=== PATIENT | male | born 1985 | race Two or more races ===

== ENCOUNTER 2020-03-04 17:17 | Emergency (ER) | payer BC ==
[~2020-03-04] VITALS: Ht 190.5 cm; Wt 108.4 kg
[2020-03-04] MEDS ORDERED: LEVOTHYROXINE100 MC1 PO (17:46)
[2020-03-04] MEDS ORDERED: RAMIPRIL5 MG PO (17:46)
[2020-03-04] MEDS ORDERED: FAMOTIDINE 20 MG/2 ML VIAL IV NR (18:00)
--- NOTE | 2020-03-04 18:34 | Emergency Department Note ---
History of Present Illnes History of Present Illness Chief Complaint: Chest Pain History of Present Illness This is a 34 year old Other male . Historian: Patient Arrival Mode: Car Assistant Media Planner Required: No Onset (how long ago): day(s) (2) Location: mid-substernal Quality: "felt like there was a big ball of pressure, just below my chest bone." Radiation: non-radiation Severity: moderate Onset quality: sudden Duration (how long): day(s) (2) Timing of current episode: intermittent Progression: resolved (upon arrival to the ED) Chronicity: recurrent Context: recent illness, recent surgery, recent immobilization, recent travel, trauma/injury, new medications, hx of DVT/PE; other (Pt reports a similar episode of chest pain on 02/01/2020, that occurred when he was eating dinner. He developed what he describes as a "ball of pressure," below the sternum. He didn't take anything for the pain an t subsided, but lingered at a "lower level" for the next several days. Patient had no pain until 2 days ago, when the pain recurred. It seemed more severe than the previous episode, and associated with mild nausea. No SOB, diaphoresis, dizziness, or radiation of the pain. ) Relieving factors: other ("activity makes it better.") Exacerbating factors: eating Associated symptoms: denies other symptoms Treatments prior to arrival: none Past Medical/Family History Physician Review I have reviewed the patient's past medical and family history. Any updates have been documented here. Past Medical History Recent Fever: No Clinical Suspicion of Infectio: No New/Unexplained Change in Ment: No Past Medical History: Hypertension, Hypothyroidism, Other Mental Illness Other Medical History: nephrotic syndrome Other Surgery: kidney biopsy 2007 Social History Smoking Cessation: Never Smoker Counseling Performed: No Alcohol Use: None Any Illegal Drug Use: No TB Exposure/Symptoms: No Physically hurt or threatened: No Family History Family history of heart diseas: Yes (Mom has HTN and he is unclear what kind of heart disease that she may have; Sibling without ASCVD;) Other Any Pre-Existing Lines (PICC,: No Is patient up to date on immun: Yes Last Flu: none Last Pneumovax: none Review of Systems Review of Systems Constitutional: no symptoms EENTM: no symptoms Cardiovascular: as per HPI, chest pain; edema, palpitations, syncope, other Respiratory: no symptoms; as per HPI, change in phlegm color, chest congestion, cough, hemoptysis, excessive phlegm production, pain on inspiration, pain with cough, dyspnea, dyspnea on exertion, snoring, stridor, wheezing, other Gastrointestinal: other (history of symptoms of acid reflux); no symptoms, as per HPI, abdominal pain, constipation, diarrhea, nausea, vomiting Genitourinary: no symptoms Musculoskeletal: no symptoms Neurological: no symptoms, headache, numbness, paresthesia, tingling, weakness Psychological: no symptoms Hematological/Lymphatic: no symptoms Review of other systems All other systems reviewed and negative. Physical Exam Related Data Allergies: Coded Allergies: hydrocodone (Verified Allergy, Unknown, 03/04/20) can take tylenol Triage Vital Signs Vital Signs Date Time Temp Pulse Resp B/P (MAP) Pulse Ox O2 Delivery O2 Flow Rate FiO2 03/04/20 17:23 98.2 94 18 145/68 98 Vital signs reviewed: Yes Physical Exam CONSTITUTIONAL Constitutional: well-developed, well-nourished, obese HENT HENT: normocephalic, atraumatic, oropharynx clear/moist, nose normal HENT L/R: left TM normal, right TM normal, left canal normal, right canal normal EYES Eyes: PERRL, conjunctivae normal, EOM normal NECK Neck: ROM normal, supple PULMONARY Pulmonary: effort normal, breath sounds normal CARDIOVASCULAR Cardiovascular: regular rhythm, heart sounds normal, intact distal pulses, capillary refill normal, normal rate, palpable pulses, strong pulses GASTROINTESTINAL Abdominal: soft, nontender, bowel sounds normal GENITOURINARY Genitourinary: exam deferred SKIN Skin: warm, dry MUSCULOSKELETAL Musculoskeletal: ROM normal NEUROLOGICAL Neurological: alert, oriented x 3, no gross motor or sensory deficits PSYCHOLOGICAL Psychological: mood/affect normal, judgement normal Results Laboratory Laboratory Cardiac enzymes - nl CMP - nl except for AST/ALT = 49/58, K+ = 3.5; CBC - H/H 17.1 / 49.9 BNP = nl Lab results reviewed: Yes Imaging Imaging results reviewed: Yes Impressions [place] [id number] Patient Name: MOOSE FRANCO MR #: [id number] : 03/05/1997 Age/Sex: 22/F Req #: [id number] Adm Physician: Ordered by: TIFFANI DESIR MD Report #: [id number] Location: [facility] Room/Bed: Procedure: [id number] HOPD/L SPINE 2-3 VEWS - HOPD Exam Date: 03/04/20 Exam Time: 1020 REPORT STATUS: Signed EXAM: Lumbar spine radiographs-3 views INDICATION: Left-sided low back with radiculopathy. COMPARISON: None FINDINGS: BONES: The alignment is within normal limits. No acute displaced fractures. Vertebral body heights are preserved. DISCS: Unremarkable. JOINTS: The facet joints and sacroiliac joints are unremarkable. SOFT TISSUES: Unremarkable IMPRESSION: No acute lumbar spine radiographic findings. Signed by: Dr. Anisha Olivera MD on 03/04/2020 11:48 AM Dictated By: ANISHA OLIVERA MD [id number] Transcribed By: SHEELA on 03/04/20 1148 COPY TO: TIFFANI DESIR MD~ Imaging Comments CXR - likley LLL atelectasis, which I would favor, since patient is not coughing, no fever and no known COVID 19 exposures. Diagnostics Tests Diagnostic test(s) reviewed: Yes Procedures 12 Lead ECG Interpretation Assistant Media Planner: Interpreted by ED physician Date: March 04, 2020 Time: 17:27 Prior RECORDS SPECIALIST tracings: not available for review Rhythm: sinus rhythm Rate: normal BPM: 86 QRS axis: right ST segments normal: Yes T waves normal: Yes Clinical Impression: abnormal ECG Clinical Decision Tools HEART Score Date Taken: March 04, 2020 Time taken: 18:00 List risk factors HTN, Obesity HEART Scort: HEART Scort Response (Comments) Value History Slightly suspicious 0 EKG Normal 0 Age < 45 0 Risk factors > or = 3 risk factors (2) 2 Troponin < or = to normal limit Total 2 Assessment & Plan Assessment & Plan Problems: (1) Non-cardiac chest pain (2) GERD (gastroesophageal reflux disease) (3) Elevated liver enzymes (4) Hypertension (5) Nephrotic syndrome Assessment & Plan Discussed results of negative ER evaluation of substernal cp, as far as possible cardiac etiology of his pain. CXR showed possible "atelectasis," vs infiltrate. Pt is having no respiratory symptoms, cough or fever. So, favor atelectasis. History, quality and location of pain is suggestive of GERD, with possible esophagitis. He admits to eating "very late at night," sometimes 11:00 pm, because he states that " he can't sleep well without food in his stomach." - Advised that we will try Pantoprazole 40 mg daily - F/u with his PCP to discuss this visit, his symptoms and to discuss a referral to GI for possible EGD. - BLAND diet, encourage small meals frequently and to avoid eating sooner than 2-3 hours before bed. He "doesn't think that he can do that, because he won't sleep well. - Return to the ER, if symptoms recur and are severe. Pt was asymptomatic throughout his course in the ED. Pt voiced understanding of the plan. Depart Disposition: HOME, SELF-CARE Last Vital Signs Date Time Temp Pulse Resp B/P (MAP) Pulse Ox O2 Delivery O2 Flow Rate FiO2 03/04/20 17:23 98.2 94 18 145/68 98 Home Meds Active Scripts Pantoprazole Sodium (PROTONIX) 20 Mg Tablet.dr, 40 MG PO DAILY for 30 Days, #30 TAB 0 Refills Prov:TIFFANI DESIR MD 03/04/20 Reported Medications Levothyroxine Sodium (LEVOTHYROXINE SODIUM) 100 Mcg Vial, 100 MCG PO DAILY, VIAL 03/04/20 Ramipril (RAMIPRIL) 5 Mg Capsule, 5 MG PO BID, #30 TAB 03/04/20 Medications in the ED Famotidine 20 mg NOW STAT IV ; Start 03/04/20 at 17:59; Stop 03/04/20 at 18:00; Status UNV TIFFANI DESIR MD March 04, 2020 18:23
--- NOTE | 2020-03-04 18:46 | Diagnostic Imaging Report ---
EXAMINATION: CXR 2 VIEW - HOPD INDICATION: Substernal chest pain. COMPARISON: None FINDINGS: TUBES and LINES: None. LUNGS: Lungs are well inflated. On the frontal view, there is mild patchy left basilar opacity, without corresponding opacity on lateral radiograph, likely atelectasis. There is no evidence of lobar pneumonia or pulmonary edema. Bilateral calcified granulomas. PLEURA: No pleural effusion or pneumothorax. HEART AND MEDIASTINUM: The cardiomediastinal silhouette is unremarkable. BONES AND SOFT TISSUES: No acute osseous lesion. Soft tissues are unremarkable. UPPER ABDOMEN: No free air under the diaphragm. IMPRESSION: Mild patchy left basilar opacity, more likely atelectasis than infection. Signed by: Dr. Camelia Bennett MD on 03/04/2020 6:42 PM
[2020-03-04] MEDS ORDERED: PROTONIX20 MG PO (19:04)
== END 2020-03-04 19:30 | disposition home or self-care (01) ==
LOC: FSED 17:17
DX: R07.89 Other chest pain (principal); R74.8 Abnormal levels of other serum enzymes; K21.9 Gastro-esophageal reflux disease without esophagitis; I10 Essential (primary) hypertension; N04.9 Nephrotic syndrome with unspecified morphologic changes
CPT/HCPCS: 71046; 80053; 81003; 82553; 83880; 84484; 85025; 93005; 96374; 99284